=== PATIENT | female | born 1930 | race Caucasian/White ===

== ENCOUNTER 2017-01-17 12:52 | Emergency (ER) | payer MEDICARE, BC ==
[2017-01-17 13:03] VITALS: BP 141/91; PULSE 80; RESP 18; TEMP 97.8; O2SAT 97
== END 2017-01-17 14:35 | disposition home or self-care (01) | DRG 951 ==
LOC: ED 12:52
DX: Z03.89 Encounter for observation for other suspected diseases and conditions ruled out (principal)
CPT/HCPCS: 99282

== ENCOUNTER 2017-06-11 11:02 | Outpatient (CLI) | payer MEDICARE, BC ==
[2017-01-17 13:03] VITALS: O2SAT 97
== END 2017-06-11 11:03 | disposition home or self-care (01) | DRG 558 ==
LOC: CONVCARE 11:02
PROVIDERS: ATTEND Orthopaedic Surgery
DX: M70.61 Trochanteric bursitis, right hip (principal)
CPT/HCPCS: 73502

== ENCOUNTER 2017-06-28 13:51 | Inpatient (IN) | payer MEDICARE, BC ==
[2017-06-28 14:38] LABS: BASOPHILS % (AUTO) 1 % (0-3); EOSINOPHILS % (AUTO) 1 % (0-9); HEMATOCRIT 38 % (35-47); HEMOGLOBIN 12.8 gm/dl (12.0-15.5); LYMPHOCYTES % (AUTO) 9.38 % (10-50); MEAN CORPUSCULAR HEMOGLOBIN 29.8 pg (27.0-32.0); MEAN CORPUSCULAR VOLUME 88 fL (81-99); MONOCYTES % (AUTO) 7.5 % (0-12); NEUTROPHILS % (AUTO) 81.5 % (37-80)
[2017-06-28 14:58] LABS: ALBUMIN 3.3 gm/dl (3.4-5.0); BILIRUBIN,TOTAL 0.6 mg/dl (0.2-1.0); CALCIUM 9.4 mg/dl (8.5-10.1); CARBON DIOXIDE 27.4 mEq/L (21-32); CREATININE 1.08 mg/dl (0.60-1.00); POTASSIUM 4.1 mMol/L (3.5-5.1); TOTAL PROTEIN 7.7 gm/dl (6.4-8.2)
[2017-06-28] MEDS ORDERED: TRAMADOL HYDROCHLORIDE 50 MG TAB PO ONE (14:59)
[2017-06-28] MEDS ORDERED: TRAMADOL HYDROCHLORIDE 50 MG TAB ONE (15:02)
[2017-06-28 16:05] LABS: APPEARANCE,URINE Cloudy; BILIRUBIN,URINE NEGATIVE (NEGATIVE); COLOR,URINE Dark yellow; GLUCOSE, URINE (UA) NEGATIVE (NEGATIVE); KETONES,URINE TRACE (NEGATIVE); LEUKOCYTE ESTERASE ,URINE 3+ (NEGATIVE); NITRATE,URINE POSITIVE (NEGATIVE); OCCULT BLOOD,URINE 1+ (NEG-TRACE); UROBILINOGEN,URINE 0.2 (0.2-1.0 EU)
[2017-06-28 16:18] LABS: BACTERIA 3+ (< 1+); CRYSTALS NEGATIVE (0-3 AVE/HPF); EPITHELIAL CELLS 0-3 (SQUAMOUS); WBC,URINE 100-150 (0-5AV/HPF)
[2017-06-28] MEDS ORDERED: LEVOFLOXACIN 500 MG TAB PO ONE (16:56)
[2017-06-28] MEDS ORDERED: LEVOFLOXACIN 500 MG TAB ONE (16:58)
[2017-06-28] MEDS ORDERED: TEMAZEPAM PO PRN (17:49)
[2017-06-28] MEDS ORDERED: TRAMADOL HYDROCHLORIDE 50 MG TAB PO SCH (18:00)
[2017-06-28] MEDS: SODIUM CHLORIDE 0.9% 1000ML 1,000 ML IV SCH (18:51)
[2017-06-28] MEDS ORDERED: SODIUM CHLORIDE 0.9% FLUSH 10 ML SOL IV PRN (18:54)
[2017-06-28] MEDS ORDERED: TRAMADOL HYDROCHLORIDE 50 MG TAB PO PRN (19:22)
[2017-06-28] MEDS ORDERED: ENOXAPARIN 40 MG SOL SC SCH (20:15)
[2017-06-28] MEDS ORDERED: ATORVASTATIN 10 MG TAB PO SCH (21:00)
[2017-06-28] MEDS ORDERED: ALPRAZOLAM PO SCH ×2 (21:00)
[2017-06-28] MEDS ORDERED: ALPRAZOLAM 0.25 MG TAB PO SCH (21:00)
[2017-06-28] MEDS: TEMAZEPAM 15MG 15 MG CAP PO PRN ×2 (21:30→23:17)
[2017-06-29] MEDS: SODIUM CHLORIDE 0.9% 1000ML 1,000 ML IV SCH (01:54)
[2017-06-29] MEDS ORDERED: LORAZEPAM 0.5 MG TAB PR PRN (08:19)
[2017-06-29] MEDS ORDERED: ENOXAPARIN 40 MG SOL SC SCH ×2 (09:00→21:00)
[2017-06-29] MEDS ORDERED: LISINOPRIL 5 MG TAB PO SCH (09:00)
[2017-06-29] MEDS ORDERED: ASPIRIN EC 81 MG PO SCH (09:00)
[2017-06-29] MEDS ORDERED: MORPHINE SULFATE 10 MG/5 ML SOL PO PRN (09:15)
[2017-06-29] MEDS ORDERED: ACETAMINOPHEN 325 MG PR PRN (15:44)
[2017-06-29] MEDS ORDERED: LEVOFLOXACIN 500 MG TAB PO SCH (17:00)
[2017-06-29] MEDS: SCOPOLAMINE 1.5MG PATCH TD SCH (18:07)
[2017-06-30] MEDS ORDERED: ACETAMINOPHEN 650 MG SUP PR ONE (00:27)
[2017-06-30] MEDS: ACETAMINOPHEN 650 MG SUP PR PRN ×3 (00:29→19:55)
[2017-06-30] MEDS: MORPHINE SULFATE 20 MG/1 ML SOL PO PRN ×2 (13:07→23:00)
[2017-07-01] MEDS: ACETAMINOPHEN 650 MG SUP PR PRN ×3 (05:21→18:49)
[2017-07-01] MEDS: MORPHINE SULFATE 20 MG/1 ML SOL PO PRN ×2 (12:43→15:47)
[2017-07-02] MEDS: MORPHINE SULFATE 20 MG/1 ML SOL PO PRN ×2 (03:11→06:01)
[2017-07-02] MEDS: ACETAMINOPHEN 650 MG SUP PR PRN ×2 (16:24→20:47)
[2017-07-02] MEDS: SCOPOLAMINE 1.5MG PATCH TD SCH ×2 (18:59→21:07)
[2017-07-03] MEDS: ACETAMINOPHEN 650 MG SUP PR PRN (06:34)
[2017-07-03 13:15] VITALS: BP 116/75; PULSE 78; RESP 20; TEMP 98.7; O2SAT 95
[2017-07-03] MEDS: MORPHINE SULFATE 20 MG/1 ML SOL PO PRN (13:56)
== END 2017-07-03 14:15 | disposition hospice, inpatient (51) | DRG 947 ==
LOC: ED 13:51 → ACUTE CARE 17:07 → UNDOADMIN 17:07 → ACUTE CARE 17:25
PROVIDERS: ADMIT Family Medicine; ATTEND Family Medicine
DX: R53.1 Weakness (principal); I63.8 Other cerebral infarction; N30.00 Acute cystitis without hematuria; I10 Essential (primary) hypertension; M79.604 Pain in right leg; R29.810 Facial weakness
CPT/HCPCS: 36415; 70450; 73501; 73562; 80053; 81001; 85025; 87077; 87088; 87186; 93005; 99283; 99284; J1650; A6232; A9270-GY; J2270